=== PATIENT | male | born 1940 | race Caucasian/White ===

== ENCOUNTER 2020-11-08 09:37 | Outpatient (CLI) | payer MEDICARE, OTHER ==
[2020-11-08] MEDS ORDERED: IOPAMIDOL-300 100 ML VIAL ONE (09:55)
[2020-11-08] MEDS ORDERED: IOPAMIDOL-300 50 ML VIAL ONE (10:03)
[2020-11-08 10:09] LABS: CREATININE 1.1 mg/dL (0.6-1.2)
[2020-11-08] MEDS ORDERED: IOPAMIDOL-300 100 ML VIAL IVP ONE (13:27)
[2020-11-08] MEDS ORDERED: IOPAMIDOL-300 50 ML VIAL PO ONE (13:27)
--- NOTE | 2020-11-08 13:36 | CT Report ---
PROCEDURE: Abdomen/Pelvis W INDICATIONS: CARCINOMA OF HEAD AND NECK, MASS OF CHEST WALL CONTRAST: IV CONTRAST: Isovue 300 ml: 100 PO CONTRAST: Isovue 300 ml50 TECHNIQUE: After the administration of contrast, 5 mm thick sections acquired from the diaphragms to the sym physis. 5 mm thick coronal and sagittal reformats were acquired. For radiation dose reduction, the following was used: automated exposure control, adjustment of mA and/or kV according to patient size . COMPARISON: None. FINDINGS: Image quality: Excellent. ABDOMEN: Lung bases: Lung bases are clear. Heart size is normal. Solid organs: Liver and spleen are normal in size and enhancement. Gallbladder appears normal Bili kathie system is non dilated. Pancreas enhances normally. No adrenal nodules. Kidneys demonstrate nor mal size and enhancement, without hydronephrosis. Peritoneum and bowel: Bowel loops demonstrate normal wall thickness and caliber. No free fluid or a ir. Nodes and vessels: No retroperitoneal or mesenteric adenopathy by size criteria. Aorta and inferior vena cava are normal in size. Miscellaneous: No ventral hernias. PELVIS: Genitourinary: Bladder wall thickness is normal. Miscellaneous: No inguinal hernias or adenopathy. Bones: No suspicious bony lesions. No vertebral body compression fractures. IMPRESSION: No sign of primary or metastatic neoplasm throughout the lower chest, abdomen and pelvis . Reviewed by: Mark Reyes MD on 11/08/2020 1:35 PM PDT Approved by: Mark Reyes MD on 11/08/2020 1:35 PM PDT Station ID: [id number]
--- NOTE | 2020-11-08 13:52 | CT Report ---
PROCEDURE: CHEST W INDICATIONS: CARCINOMA OF HEAD AND NECK, MASS OF CHEST WALL CONTRAST: IV CONTRAST: Isovue 300 ml: 100 PO CONTRAST: Isovue 300 ml50 TECHNIQUE: After the administration of intravenous contrast, 5 mm thick sections acquired from the pulmonary api [place] to the posterior costophrenic angles. 7 mm thick coronal MIP reformats were acquired. For radia tion dose reduction, the following was used: automated exposure control, adjustment of mA and/or kV according to patient size. COMPARISON: None. FINDINGS: Image quality: Excellent. Lungs and pleura: No acute air space opacities suggestive of pneumonia is seen but there are several pulmonary nodules and focal pleural thickening along the major fissure on the left. The highest pulm onary nodule is located on the right measuring 4 x 6 mm, abutting the highest margin of the major fis sure within the posterior border of the right upper lobe, series 3 image 119. More inferiorly the upp ermost margin of the pleural thickening can be seen on the left which is tapering and becoming slight ly more prominent as the mid and lower chest is reached. A discrete malignant-appearing mass within t he pleural margins in this area is not seen, however. Please refer to 3/135, left. A 3 mm nodule is p resent within the right lower lobe, 3/186. An additional 3 mm pleural nodule is seen laterally on the right, mid chest level, 3/200. An additional right sided lateral pulmonary nodule is present within the right lower lobe, 3/221. A 3 mm x 4 mm nodule is seen at the lateral left lower lobe, pleural-bas ed, 3/232. The tapering pleural thickening along the major fissure on the left terminates at the ling ular segment area of the left upper lobe, 3/210.. No pleural effusions or pneumothorax. Central and peripheral airways are patent and normal in caliber. Mediastinum: Heart size is normal. No pericardial effusion. No mediastinal or hilar adenopathy by size criteria. Thoracic aorta and central pulmonary arteries are normal in size. Esophagus is arcelia l in caliber. No hiatal hernia. Bones and chest wall: No suspicious bony lesions. No vertebral body compression fractures. No axil catherine or supraclavicular adenopathy by size criteria. Thyroid gland appears normal where well seen.. Abdomen: Visualized upper abdominal solid organs appear normal. Upper abdominal bowel loops are nor mal in caliber. IMPRESSION: Within the lung parenchyma there are scattered 3-4 mm pulmonary nodules, none of which are definitive ly malignant in appearance. Additionally, there is a band of pleural thickening along the anterior jeffrey rder of the left major fissure as noted, without nodularity or a discrete solid mass along the pleura l surface that would indicate likelihood of malignancy. Continued attention to these nodules and pleu ral thickening, however, is recommended and a repeat chest CT scan in 6 months appears warranted to a ssist in establishing benign etiology. Reviewed by: Mark Reyes MD on 11/08/2020 1:50 PM PDT Approved by: Mark Reyes MD on 11/08/2020 1:50 PM PDT Station ID: [id number]
--- NOTE | 2020-11-08 14:53 | CT Report ---
PROCEDURE: SOFT TISSUE NECK W INDICATIONS: CARCINOMA OF HEAD AND NECK, MASS OF CHEST WALL CONTRAST: IV CONTRAST: Isovue 300 ml: 100 PO CONTRAST: Isovue 300 ml50 TECHNIQUE: After the administration of intravenous contrast, 3.0 mm axial sections acquired from the sella to th e aortic arch. Additional oblique axial 3.0 mm sections acquired through the pharynx. 3 mm thick co marc reformats were generated. For radiation dose reduction, the following was used: automated exp osure control, adjustment of mA and/or kV according to patient size. COMPARISON: Correlation is made with the accompanying chest CT, 11/08/2020. FINDINGS: Image quality: There is artifact associated with the metallic hardware. Lymph nodes: No enlarged lymph nodes seen throughout the neck. Vessels: Visualized vasculature appears patent. Neck spaces: The oropharynx, nasopharynx, and pharynx demonstrate no mucosal lesions. The vocal cor ds, false vocal cords, pyriform sinuses, epiglottis, vallecula, and tongue base all appear normal. E xtramucosal spaces appear unremarkable. Glands: The parotid and submandibular glands appear normal. The thyroid is normal in size. Miscellaneous: Visualized brain and orbits appear normal. Lung apices appear clear. Superficial so ft tissues appear normal. Bones: No suspicious bony lesions. Visualized sinuses and mastoids appear unremarkable. Moderate t o prominent cervical spine degenerative changes are seen. Numerous levels of bridging anterior osteop hytes are seen. IMPRESSION: No enlarged cervical lymph nodes are seen. No neck masses are detected. Moderate to prominent cervical spine degenerative changes can be seen. Reviewed by: Donis Alston MD on 11/08/2020 1:52 PM EMMANUEL Approved by: Donis Alston MD on 11/08/2020 1:52 PM EMMANUEL Station ID: [id number]
== END 2020-11-08 09:38 | disposition home or self-care (01) ==
LOC: LAB 09:37
PROVIDERS: ATTEND Surgery
DX: R22.2 Localized swelling, mass and lump, trunk (principal); C80.1 Malignant (primary) neoplasm, unspecified; R91.8 Other nonspecific abnormal finding of lung field; M47.812 Spondylosis without myelopathy or radiculopathy, cervical region
CPT/HCPCS: 36415; 70491; 71260; 74177; 82565; Q9967

== ENCOUNTER 2020-11-22 12:45 | Outpatient (CLI) | payer MEDICARE, OTHER | END 2020-11-22 12:46 | disposition home or self-care (01) | LOC: COV 12:45 | PROVIDERS: ATTEND Surgery | DX: Z01.812 Encounter for preprocedural laboratory examination (principal); C41.3 Malignant neoplasm of ribs, sternum and clavicle; Z20.822 Contact with and (suspected) exposure to COVID-19 ==

== ENCOUNTER 2020-11-25 07:46 | Day surgery (SDC) | payer MEDICARE, OTHER ==
--- OUTSIDE RECORDS SUMMARY | 2020-11-25 07:49 | EXTERNAL MEDICAL SUMMARY RPT | Continuity of Care Document ---
:1940 Demographics Phone Unavailable Preferred Language Latvian Marital Status Unknown Worship Affiliation Unknown Race Unknown Ethnic Group Unknown Author Organization [facility] Address [address] [place] [address] Phone Problems date description facility [id number] Localized swelling, mass and lump, [facility] [id number] Localized swelling, mass and lump, [facility] Social History date description facility [id number]
[2020-11-25] MEDS ORDERED: ceFAZolin 2 GM/50 ML 2 GM/50 ML BAG IV ONE (07:56)
[2020-11-25] MEDS ORDERED: PROPOFOL 200 MG/20 ML VIAL IVP ONE (08:18)
[2020-11-25] MEDS ORDERED: DEXAMETHASONE 4 MG/ML VIAL ONE ×2 (08:18→09:12)
[2020-11-25] MEDS ORDERED: LIDOCAINE-MPF 2% 5 ML VIAL ONE (08:18)
[2020-11-25] MEDS ORDERED: ONDANSETRON 4 MG/2 ML VIAL ONE (08:18)
[2020-11-25] MEDS ORDERED: LACTATED RINGERS 1,000 ML IV ONE ×2 (08:41→10:28)
--- NOTE | 2020-11-25 08:56 | ANESTHESIA ---
Pre-Anesthesia VS, & Labs - Diagnosis left clavicle SCCA - Procedure wide excision left clavicle mass Vital Signs: Temp Pulse Resp BP Pulse Ox 36.2 C L 62 14 170/73 H 100 11/25/20 08:04 11/25/20 08:04 11/25/20 08:04 11/25/20 08:04 11/25/20 08:04 Height: 6 ft Weight (kg): 152 kg Body Mass Index: 45.4 BMI Classification: Morbidly Obese - NPO >8 hours Home Medications and Allergies Home Medications: Ambulatory Orders Aspirin [[place] Aspirin] 81 mg PO DAILY 11/19/20 Glucosamine HCl 1,500 mg PO DAILY 11/19/20 Metoprolol Succinate 25 mg PO DAILY 10/14/18 Aspirin [[place] Aspirin] 81 mg PO DAILY 11/19/20 Glucosamine HCl 1,500 mg PO DAILY 11/19/20 Allergies/Adverse Reactions: Allergies Allergy/AdvReac Type Severity Reaction Status Date / Time No Known Drug Allergies Allergy Verified 10/14/18 10:25 Anes History & Medical History - Anesthetic History Anesthesia Complications: reports: No previous complications - Medical History Cardiovascular: reports: Hypertension Pulmonary: reports: None Gastrointestinal: reports: None Urinary: reports: None Musculoskeletal: reports: None Endocrine/Autoimmune: reports: None Skin: reports: Other Smoking Status: Never smoker History of Cancer?: Yes - Surgical History Dermatologic: reports: Skin cancer surgery Exam General: Alert Dental: WNL Mouth Opening: Greater than 4 Fingerbreadths Neck Mobility: Normal Mallampati classification: II Thyromental Distance: greater than 6 cm Respiratory: Lungs clear, Decreased breath sounds Cardiovascular: Regular rate Plan Anesthesia Type: General Consent for Procedure(s) Verified and Reviewed: Yes Code Status: Attempt Resuscitation ASA classification: 3-Severe systemic disease Is this case an emergency?: No
[2020-11-25] MEDS ORDERED: NALOXONE 0.4 MG/ML VIAL IVP PRN (08:59)
[2020-11-25] MEDS ORDERED: ATROPINE ABBOJECT 1 MG/10 ML SYRINGE IVP PRN (08:59)
[2020-11-25] MEDS ORDERED: HYDROmorphone 0.5 MG/0.5 ML SYRINGE IVP PRN (08:59)
[2020-11-25] MEDS ORDERED: ePHEDrine 50 MG/ML VIAL IVP PRN (08:59)
[2020-11-25] MEDS ORDERED: fentaNYL 100 MCG/2 ML VIAL IVP PRN (08:59)
[2020-11-25] MEDS ORDERED: ONDANSETRON 4 MG/2 ML VIAL IVP PRN ×2 (08:59→10:35)
[2020-11-25] MEDS ORDERED: MORPHINE 2 MG/ML CARPUJECT IVP PRN (08:59)
[2020-11-25] MEDS ORDERED: METOCLOPRAMIDE 10 MG/2 ML VIAL IVP PRN (08:59)
[2020-11-25] MEDS ORDERED: LACTATED RINGERS 1,000 ML IV SCH (09:00)
[2020-11-25] MEDS ORDERED: MIDAZOLAM 2 MG/2 ML VIAL ONE (09:10)
[2020-11-25] MEDS ORDERED: ROPIVACAINE 0.5% PF 20 ML AMPULE ONE (09:11)
[2020-11-25] MEDS ORDERED: LIDOCAINE 1% 50 ML MDV ONE (09:17)
[2020-11-25] MEDS ORDERED: BUPIVACAINE 0.5%-EPI 1:200000 PF 30 ML VIAL ONE (09:17)
[2020-11-25] MEDS ORDERED: SUCCINYLCHOLINE 200 MG/10 ML VIAL ONE (09:26)
[2020-11-25] MEDS ORDERED: ceFAZolin 1 GM VIAL ONE (09:35)
[2020-11-25] MEDS ORDERED: GLYCOPYRROLATE 1 MG/5 ML VIAL ONE (09:42)
[2020-11-25] MEDS ORDERED: BUPIVACAINE 0.5%-EPI 1:200000 PF 30 ML VIAL SUBQ ONE (09:53)
[2020-11-25] MEDS ORDERED: LIDOCAINE 1% 50 ML MDV SUBQ ONE (09:54)
[2020-11-25] MEDS ORDERED: ePHEDrine 50 MG/ML VIAL IVP ONE (10:17)
--- NOTE | 2020-11-25 10:26 | OPERATIVE REPORT ---
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 Following successful induction of general anesthesia, appropriate padding of all bony prominences, and placement appropriate monitors, the left chest and clavicle area were prepped and draped in the standard surgical fashion. A timeout was held per scope protocol. All elements of the surgical safety checklist were followed before, during, and after the procedure.The patient received a clavicular block in the perioperative holding area prior to coming to the operating room. We began the procedure by creating a skin ellipse to include the involved area. The ellipse itself was 8-1/2 cm x 6 cm in greatest dimension. This was marked with a marker and then the skin infiltrated with 30 mL of 1% lidocaine with epinephrine and quarter percent Marcaine mixed [id number].The marked ellipse was then repeated with a 15 blade scalpel. Cautery was used to continue this incision. Significant neovascularization was appreciated.All vasculature was addressed with cautery or with surgical ties.The lesion was then lifted and scraped from the surface of the periosteum.This included a few posterior muscle fibers.No bleeding was noted from the bone.The specimen was marked for orientation and passed from the table.The wound was checked for hemostasis and irrigated with warm saline solution.It was then closed in 2 layers Vicryl and Monocryl suture and nylon mattress sutures were placed in the center of the lesion for retention. Dermabond was applied to the skin.All sponge, needle, and instrument counts are correct at the conclusion of the case. The patient was allowed to wake from anesthesia without difficulty and taken to the postanesthesia care unit in good condition
[2020-11-25] MEDS ORDERED: IBUPROFEN 600 MG TABLET PO PRN (10:35)
[2020-11-25] MEDS ORDERED: ACETAMINOPHEN 325 MG TABLET PO PRN (10:35)
[2020-11-25] MEDS ORDERED: oxyCODONE 5 MG TABLET PO PRN (10:35)
--- NOTE | 2020-11-25 10:58 | ANESTHESIA POST OP EVALUATION ---
Anesthesia Post Eval - Post Anesthesia Eval Vitals: Last Vital Signs Temp 36.4 C L 11/25/20 10:50 Pulse 68 11/25/20 10:50 Resp 16 11/25/20 10:50 BP 157/70 H 11/25/20 10:50 Pulse Ox 95 11/25/20 10:50 CV Function Including HR & BP: Stable Pain Control: Satisfactory Nausea & Vomiting: Negative Mental Status: Baseline Respiratory Status: Airway Patent Hydration Status: Satisfactory Anesthesia Complications: None
[2020-11-25 11:28] VITALS: BP 174/52
== END 2020-11-25 07:47 | disposition home or self-care (01) ==
LOC: SDS 07:46
PROVIDERS: ATTEND Surgery
PROC: 0JB60ZZ Excision of Chest Subcutaneous Tissue and Fascia, Open Approach (ICD-10-PCS; principal; 2020-11-25 08:45)
DX: C41.3 Malignant neoplasm of ribs, sternum and clavicle (principal); I10 Essential (primary) hypertension; E66.01 Morbid (severe) obesity due to excess calories; Z68.42 Body mass index [BMI] 45.0-49.9, adult
CPT/HCPCS: 11606; 12034; J0330; J0690; J7120

== ENCOUNTER 2021-09-17 12:05 | Outpatient (CLI) | payer MEDICARE, OTHER ==
[2021-09-17] MEDS ORDERED: lidocaine 1% 20 ML MDV ONE (12:27)
--- NOTE | 2021-09-17 14:08 | Ultrasound Report ---
PROCEDURE: FNA Bx w/US Gnd 1st les INDICATIONS: Posterior neck mass. History of squamous cell carcinoma. TECHNIQUE: The indications, alternatives, benefits, risks, and complications of the procedure were explained to the patient. Written informed consent was obtained and placed in the chart. The area of interest wa s examined sonographically and a site was chosen for ultrasound guided percutaneous sampling. The sk in was prepared and draped in the usual fashion, and anesthetized with 1% lidocaine infiltrated from the skin down to the lesion. Multiple passes were then performed, with [facility]. A bandage was applied to the area of access at completion of t he study. COMPARISON: Prior studies dating back to November 08, 2020. FINDINGS: Location(s) of lesion(s) sampled: Posterior neck soft tissue mass. [place]: 25 gauge hypodermic needles. Number of passes: 6 Medications: 1% lidocaine for local anaesthesia. Complications: None. IMPRESSION: Successful ultrasound-guided fine needle aspiration, with cytology results pending. Reviewed by: Jarod Oreilly MD on 09/17/2021 2:06 PM PST Approved by: Jarod Oreilly MD on 09/17/2021 2:06 PM PST Station ID: [id number]
[2021-09-17] MEDS ORDERED: lidocaine 1% 20 ML MDV SUBQ ONE (15:02)
== END 2021-09-17 12:06 | disposition home or self-care (01) ==
LOC: DI 12:05
PROVIDERS: ATTEND Surgery
DX: C76.0 Malignant neoplasm of head, face and neck (principal)
CPT/HCPCS: 10005

== ENCOUNTER 2021-09-29 08:23 | Outpatient (CLI) | payer MEDICARE, OTHER ==
[2021-09-29] MEDS ORDERED: lidocaine 1% 20 ML MDV ONE (08:53)
[2021-09-29] MEDS ORDERED: lidocaine 1% 20 ML MDV SUBQ ONE (15:05)
--- NOTE | 2021-09-29 20:57 | Ultrasound Report ---
PROCEDURE: Ultrasound-guided scalp biopsy INDICATIONS: SQUAMOUS CELL CARCINOMA TECHNIQUE: The indications, alternatives, benefits, risks, and complications of the procedure were e xplained to the patient. Written informed consent was obtained and placed in the chart. Real-time sonography was utilized to choose the site for percutaneous posterior scalp biopsy. The sk in was prepped and draped in the usual sterile fashion. 1% lidocaine was infiltrated down to the sit e of interest. A coaxial needle was then advanced into the site of interest under direct sonographic visualization. A biopsy apparatus was then utilized, and core biopsies were obtained. The needle w as then withdrawn; a bandage was applied to the biopsy site. COMPARISON: FINDINGS: Biopsy site(s): Posterior scalp Needle: Downno biopsy needle set. Number of passes: 4 Medications: 1% lidocaine for local anaesthesia. Complications: None. IMPRESSION: Successful ultrasound-guided posterior scalp biopsy, with pathology results pending. Reviewed by: Cristy Taylor MD on 09/29/2021 8:56 PM PST Approved by: Cristy Taylor MD on 09/29/2021 8:56 PM PST Station ID: [id number]
== END 2021-09-29 08:24 | disposition home or self-care (01) ==
LOC: DI 08:23
PROVIDERS: ATTEND Surgery
DX: C76.0 Malignant neoplasm of head, face and neck (principal)
CPT/HCPCS: 20206; 88305